=== PATIENT | female | born 1955 | race Hispanic/Latino ===

== ENCOUNTER 2017-10-29 15:08 | Emergency (ER) | payer BC, OTHER ==
[2017-10-30] MEDS ORDERED: ZOFRAN ODT PO ONE (00:32)
[2017-10-30] MEDS ORDERED: NORCO 10/325 PO ONE (00:32)
[2017-10-30] MEDS ORDERED: NORCO 5/325 PO ONE (02:22)
--- NOTE | 2017-10-30 02:28 | Emergency Department Report ---
ED General Adult HPI - General Chief complaint: Extremity Injury, Lower Stated complaint: POSS DVT Time Seen by Provider: 10/29/17 23:02 Source: patient Mode of arrival: Ambulatory Limitations: No Limitations - History of Present Illness Initial comments: [facility]. Patient has a history of DVTs and is concerned about this pain. Patient is currently on Pradaxa for her DVTs. Patient denies any trauma, chest pain, headache, abdominal pain -: Sudden Location: left, right, lower extremity Radiation: non-radiation Severity scale (0 -10): 7 Quality: sharp Consistency: constant Improves with: none Worsens with: none Associated Symptoms: denies other symptoms Treatments Prior to Arrival: none - Related Data Previous Rx's Medication Instructions Recorded Last Taken Type HYDROcodone/ACETAMINOPHEN [[place] 1 each PO Q6HR PRN #12 tablet 10/30/17 Unknown Rx 5-325 Tablet] Allergies Allergy/AdvReac Type Severity Reaction Status Date / Time ciprofloxacin [From Cipro] Allergy Hives Verified 06/12/16 10:30 ciprofloxacin HCl Allergy Hives Verified 06/12/16 10:30 [From Cipro] ED Review of Systems ROS: Stated complaint: POSS DVT Other details as noted in HPI Comment: All other systems reviewed and negative Constitutional: denies: chills, fever Eyes: denies: eye pain, eye discharge, vision change ENT: denies: ear pain, throat pain Respiratory: denies: cough, shortness of breath, wheezing Cardiovascular: denies: chest pain, palpitations Endocrine: no symptoms reported Gastrointestinal: denies: abdominal pain, nausea, diarrhea Genitourinary: denies: urgency, dysuria, discharge Musculoskeletal: denies: back pain, joint swelling, arthralgia Skin: denies: rash, lesions Neurological: denies: headache, weakness, paresthesias Psychiatric: denies: anxiety, depression Hematological/Lymphatic: denies: easy bleeding, easy bruising ED Past Medical Hx - Past Medical History Previous Medical History?: Yes Hx Hypertension: Yes Hx Congestive Heart Failure: No Hx Diabetes: No Hx Deep Vein Thrombosis: Yes (L. 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 - Surgical History Past Surgical History?: Yes Additional Surgical History: Hernia Repair - Social History Smoking Status: Never Smoker - Medications Home Medications: Home Medications Medication Instructions Recorded Confirmed Last Taken Type HYDROcodone/ACETAMINOPHEN [[place] 1 each PO Q6HR PRN #12 tablet 10/30/17 Unknown Rx 5-325 Tablet] ED Physical Exam - General Limitations: No Limitations General appearance: alert, in no apparent distress - Head Head exam: Present: atraumatic, normocephalic - Eye Eye exam: Present: normal appearance - ENT ENT exam: Present: mucous membranes moist - Neck Neck exam: Present: normal inspection - Respiratory Respiratory exam: Present: normal lung sounds bilaterally. Absent: respiratory distress - Cardiovascular Cardiovascular Exam: Present: regular rate, normal rhythm. Absent: systolic murmur, diastolic murmur, rubs, gallop - GI/Abdominal GI/Abdominal exam: Present: soft, normal bowel sounds - Extremities Exam Extremities exam: Present: normal inspection - Back Exam Back exam: Present: normal inspection - Neurological Exam Neurological exam: Present: alert, oriented X3 - Psychiatric Psychiatric exam: Present: normal affect, normal mood - Skin Skin exam: Present: warm, dry, intact, normal color. Absent: rash ED Course Vital Signs 10/29/17 15:53 Temperature 98.9 F Pulse Rate 75 Respiratory 16 Rate Blood Pressure 127/80 O2 Sat by Pulse 100 Oximetry ED Medical Decision Making - Medical Decision Making Discussed results with patient and her Critical care attestation.: If time is entered above; I have spent that time in minutes in the direct care of this critically ill patient, excluding procedure time. ED Disposition Clinical Impression: Leg pain Disposition: DC-01 TO HOME OR SELFCARE Is pt being admited?: No Does the pt Need Aspirin: No Condition: Stable Additional Instructions: Please return if symptoms become worse Prescriptions: HYDROcodone/ACETAMINOPHEN [[place] 5-325 Tablet] 1 each PO Q6HR PRN #12 tablet PRN Reason: Pain Referrals: [facility] [place] [Other] - 3-5 Days Time of Disposition: 02:26
[2017-10-30 02:51] VITALS: BP 136/70
== END 2017-10-30 03:08 | disposition home or self-care (01) ==
LOC: ED 15:08
DX: M79.605 Pain in left leg (principal); I10 Essential (primary) hypertension; Z86.718 Personal history of other venous thrombosis and embolism; Z88.1 Allergy status to other antibiotic agents
CPT/HCPCS: 93970; 99282; Q0162